=== PATIENT | male | born 1960 ===

== ENCOUNTER 2024-11-02 12:00 | Inpatient (IN) | payer SELFPAY ==
[2024-11-02] VITALS (11 sets, daily range): BP systolic 122–146; BP diastolic 69–83; PULSE 60–75; RESP 16–23; TEMP 36.4–37.2; O2SAT 96–99; BMI 22.1
--- NOTE | 2024-11-02 12:01 | XRR_ITS ---
PROCEDURE INFORMATION: Exam: XR Chest Exam date and time: 11/02/2024 12:31 PM Age: 63 years old Clinical indication: Pain; Chest pressure; Additional info: Cp TECHNIQUE: Imaging protocol: Radiologic exam of the chest. Views: 1 view. COMPARISON: No relevant prior studies available. FINDINGS: Lungs: Calcified granuloma at each lung base. Pleural spaces: Unremarkable. No pleural effusion. No pneumothorax. Heart/Mediastinum: Unremarkable. No cardiomegaly. Bones/joints: Unremarkable. XR/XR chest 1V portable [id number] IMPRESSION: No acute findings.
--- NOTE | 2024-11-02 12:03 | ECG_ITS ---
[facility] Test Date: 2024-11-02 Pat Name: Tobias Stout Department: Room: Gender: Male Director Process: : 1960 Requested By: Natalya Cole Order Number: [id number] Chaim MD: Charly Russ M.D. Measurements Intervals [place] Rate: 72 P: 74 [place]: 164 QRS: 56 QRSD: 90 T: 66 QT: 341 QTc: 375 Interpretive Statements SINUS RHYTHM SEPTAL MYOCARDIAL INFARCTION , PROBABLY OLD [40+ ms Q WAVE IN V1/V2] Compared to ECG 01/15/2016 06:04:21 Sinus bradycardia no longer present First degree AV block no longer present Myocardial infarct finding still present Electronically Signed On 11-02-2024 21:38:53 EMPLOYEE RELATIONS ASSISTANT by Charly Russ M.D. [id number]
--- NOTE | 2024-11-02 12:09 | ED_ITS ---
HPI - Chest Pain 2 General: Chief Complaint: Chest Pain Stated Complaint: chest pain Time Seen by Provider: 11/02/24 12:09 History of Present Illness: 63-year-old male presents to the emergen cy room with complaint of chest pain. Patient had chest pain radiating down his right arm lasted for a few minutes associated with exertion relieved slightly by rest. He has not had any pain radiating to his back or neck. He has known history of coronary artery disease and previous stenting. He has not had any cardiac evaluation since his stenting several years ago. At the time he is evaluated emergency room chest pain had resolved. Associated symptoms: Deny abdominal pain, dyspnea or fever(s) Related Data Home Medications Medication Instructions Recorded Confirmed coenzyme Q10 100 mg capsule 100 mg PO DAILY 09/01/20 11/02/24 (CoQ-10) garlic 500 mg capsule 500 mg PO DAILY 09/01/20 11/02/24 cholecalciferol (vitamin D3) 25 25 mcg PO DAILY 08/31/21 11/02/24 mcg (1,000 unit) capsule cyanocobalamin (vitamin B-12) 2,500 mcg PO DAILY 08/31/21 11/02/24 2,500 mcg tablet ascorbic acid (vitamin C) 500 mg 500 mg PO DAILY 11/02/24 11/02/24 tablet (Vitamin C) omega 6-yie-guf-fish oil 1,000 mg 1 cap PO DAILY 11/02/24 11/02/24 (120 mg-180 mg) capsule (Fish Oil) Previous Rx's Medication Instructions Recorded aspirin 81 mg tablet,delayed 81 mg PO DAILY 30 days #30 tabs 11/04/24 release (Adult Aspirin Regimen) metoprolol tartrate 25 mg tablet 12.5 mg (1/2 x 25 mg) PO BID 30 11/04/24 days #30 tabs nitroglycerin 0.4 mg sublingual 0.4 mg sublingual Q5M PRN chest 11/04/24 tablet pain 30 days #30 tabs simvastatin 20 mg tablet 20 mg PO BID 30 days #60 tabs 11/04/24 Allergies Allergy/AdvReac Type Severity Reaction Status Date / Time No Known Allergies Allergy Verified 07/01/22 14:11 Review of Systems 2 Const: Denies: fever(s) or chills Card: Denies: chest pain Resp: Denies: dyspnea GI: Denies: abdominal pain : Denies: dysuria, urinary frequency or urinary urgency Musc: Denies: neck pain or back pain Skin/Breast: Denies: rash PFSH ED 2 PFSH: Medical History Tobacco abuse Dyslipidemia Hypertension Coronary artery disease Surgical History History of coronary artery stent placement Family History Brother CAD (coronary artery disease) Cancer Diabetes Mother Cancer Sister Cancer Diabetes Family/Other Chronic kidney disease (CKD) Denies family history of Clotting disorder Dementia Suicide Anesthesia complication Bleeding disorder Lung disease Stroke Social History Smoking and tobacco/nicotine status: current every day tobacco/nicotine user Quit status (tobacco/nicotine): has tried quititng Second hand smoke exposure: Yes Alcohol intake: current Alcohol intake frequency: holidays/special occasions only Alcohol type: beer Substance/Drug Use: never Physical Exam 2 Const: COMMON NORMALS: no acute distress GENERAL APPEARANCE: cooperative and comfortable ORIENTATION/CONSCIOUSNESS: Yes awake, Yes oriented to person, Yes oriented to place and Yes oriented to time HENMT: COMMON NORMALS: normocephalic, atraumatic and hearing grossly normal bilaterally HEAD & SCALP: normocephalic and atraumatic Resp: COMMON NORMALS: normal respiratory effort, No retractions, No use of accessory muscles and clear to auscultation bilaterally AUSCULTATION: clear to auscultation bilaterally Cardio: COMMON NORMALS: regular rate, regular rhythm and No murmurs present (Cardio) RATE: regular rate RHYTHM: regular rhythm GI: COMMON NORMALS: Soft to palpation and No hepatosplenomegaly present A USCULTATION: Yes normoactive bowel sounds PALPATION: Yes Soft to palpation, No Tenderness to palpation present (GI), No Guarding due to palpation present (GI) and Yes No hepatosplenomegaly present Extremity: COMMON NORMALS: normal to inspection, capillary refill normal, no clubbing, cyanosis or edema, no calf tenderness and no pedal edema Neuro: SENSORIUM/ORIENTATION: Yes oriented to person, Yes oriented to place and Yes oriented to time Skin: COMMON NORMALS: no rashes or lesions noted GENERAL SKIN EXAM: no rashes or lesions noted Course 2 Vital Signs: Vital signs: Vital Signs Temperature 97.9 F 11/04/24 16:00 Pulse Rate 67 11/04/24 19:28 Respiratory Rate 16 11/04/24 19:28 Blood Pressure 115/68 11/04/24 19:28 Pulse Oximetry 97 11/04/24 19:28 Oxygen Delivery Me thod Room Air 11/04/24 16:00 MDM - Chest Pain Medical Decision Making NSTEMI. Initial troponin 64 with a positive delta of 93.8. Patient started on heparin topical nitro. Will admit to consult cardiology. Medical Records I reviewed the patient's medical records. Lab Data I reviewed the patient's lab results. 11/04/24 04:28 11/04/24 04:28 Radiology Impressions Chest X-Ray 11/02/24 12:01 IMPRESSION: No acute findings. Laboratory Results WBC 8.90 10^3/uL (3.29-11.43) 11/02/24 12:24 RBC 5.47 10^6/uL (3.85-5.65) 11/02/24 12:24 Hgb 16.00 g/dL (11.27-16.99) 11/02/24 12:24 Hct 49.3 % (37-53) 11/02/24 12:24 MCV 90.1 fl (82-101) 11/02/24 12:24 MCH 29.3 pg (27-33) 11/02/24 12:24 MCHC 32.5 g/dL (30-55) 11/02/24 12:24 RDW 12.9 % (12.1-15.1) 11/02/24 12:24 Plt Count 167 10^3/cmm (157-399) 11/02/24 12:24 MPV 9.6 fL (7.4-10.4) 11/02/24 12:24 Neut % (Auto) 73.6 % 11/02/24 12:24 Lymph % (Auto) 18.0 % 11/02/24 12:24 [place] % (Auto) 7.0 % 11/02/24 12:24 Eos % (Auto) 0.6 % 12/24/24 12:24 Baso % (Auto) 0.6 % 11/02/24 12:24 Neut # (Auto) 6.56 10^3/uL (1.8-7.7) 11/02/24 12:24 Lymph # (Auto) 1.6 10^3/uL (0.8-4.8) 11/02/24 12:24 [place] # (Auto) 0.6 10^3/uL (0.2-0.9) 11/02/24 12:24 Eos # (Auto) 0.1 10^3/uL (0.0-0.8) 11/02/24 12:24 Baso # (Auto) 0.1 10^3/uL (0.0-0.1) 11/02/24 12:24 Nucleated RBC % (auto) 0 % 11/02/24 12:24 Nucleated RBCs # 0.0 /100WBC 11/02/24 12:24 Sodium 135 mmol/L (136-145) L 11/02/24 12:24 Potassium 4.5 mmol/L (3.5-5.1) 11/02/24 12:24 Chloride 100 mmol/L (98-107) 11/02/24 12:24 Carbon Dioxide 26 mmol/L (22-29) 11/02/24 12:24 Anion Gap 13.5 (5-19) 11/02/24 12:24 BUN 11 mg/dL (8-23) 11/02/24 12:24 Creatinine 0.9 mg/dL (0.7-1.2) 11/02/24 12:24 GFR Calculation 85.8 mL/min (90-130) L 11/02/24 12:24 Glucose 86 mg/dL (65-115) 11/02/24 12:24 Estimat Average Glucose 114 11/02/24 12:24 Hemoglobin A1c 5.6 % (4.0-6.0) 11/02/24 12:24 Calculated Osmolality 279 mOsm/kg (285-295) L 11/02/24 12:24 Calcium 9.5 mg/dL (8.5-10.5) 11/02/24 12:24 Total Bilirubin 0.4 mg/dL (0.15-1.2) 11/02/24 12:24 AST 13 U/L (0-40) 11/02/24 12:24 ALT 10 U/L (0-41) 11/02/24 12:24 Alkaline Phosphatase 67 U/L (40-130) 11/02/24 12:24 Troponin T Baseline 64 ng/L (0-15) H 11/02/24 12:24 Troponin T 120 Minute 93.80 ng/L (0-15) H 11/02/24 15:00 Delta Troponin T 29.80 ABS# (0-10) H* 11/02/24 15:00 Total Protein 7.7 g/dL (6.6-8.7) 11/02/24 12:24 Albumin 4.6 g/dL (3.5-5.2) 11/02/24 12:24 Globulin 3.1 g/dL (1.3-4.6) 11/02/24 12:24 Triglycerides 144 mg/dL (0-150) 11/02/24 12:24 Cholesterol 204 mg/dL (0-200) H 11/02/24 12:24 LDL Cholesterol, Calc 143 mg/dL (50-129) H 11/02/24 12:24 HDL Cholesterol 32 mg/dL (60-100) L 11/02/24 12:24 LDL/HDL Ratio 4.47 RATIO (0.00-3.22) H 11/02/24 12:24 Cholesterol/HDL Ratio 6.38 mg/dL (1.0-5.00) H 11/02/24 12:24 Lipase 36 U/L (13-60) 11/02/24 12:24 TSH 0.97 uIU/mL (0.27-4.20) 11/02/24 12:24 All radiology interpretation(s) finalized by discharge Discharge Plan Discharge Patient Disposition: Admitted As Inpatient Admit Provider: Alexandre Curtis Clinical Impression: NSTEMI (non-ST elevated myocardial infarction), Hypertension, Coronary artery disease Condition: Stable Discharge Diet: Cardiac Discharge Activity: Resume usual activity Coding Level of Care Code ED Database Marketing Specialist for Robert Pedroza
[2024-11-02 12:30] LABS: Basophils # 0.1 10^3/uL (0.0-0.1); Basophils % 0.6 %; Eosinophils # 0.1 10^3/uL (0.0-0.8); Eosinophils % 0.6 %; Hematocrit 49.3 % (37-53); Lymphocytes # 1.6 10^3/uL (0.8-4.8); Mean Corpuscular HGB Conc 32.5 g/dL (30-55); Mean Corpuscular Hemoglobin 29.3 pg (27-33); Mean Corpuscular Volume 90.1 fl (82-101); Mean Platelet Volume 9.6 fL (7.4-10.4); Monocytes # 0.6 10^3/uL (0.2-0.9); Neutrophils # 6.56 10^3/uL (1.8-7.7); Neutrophils % 73.6 %; Nucleated Red Blood Cells % 0 %; Platelet Count 167 10^3/cmm (157-399); Red Blood Count 5.47 10^6/uL (3.85-5.65); Red Cell Distribution Width 12.9 % (12.1-15.1)
--- NOTE | 2024-11-02 12:51 | PC.PHAR ---
Spouse states pt has not taken his medications in a week. Pt has only taken 2 x 81mg asa today.
[2024-11-02 12:53] LABS: Alanine Aminotransferase 10 U/L (0-41); Albumin Level 4.6 g/dL (3.5-5.2); Alkaline Phosphatase 67 U/L (40-130); Anion Gap 13.5 (5-19); Aspartate Amino Transferase 13 U/L (0-40); Blood Urea Nitrogen 11 mg/dL (8-23); Calcium 9.5 mg/dL (8.5-10.5); Carbon Dioxide 26 mmol/L (22-29); Chloride 100 mmol/L (98-107); Globulin 3.1 g/dL (1.3-4.6); Glomerular Filtration Rate 85.8 mL/min (90-130); Glucose 86 mg/dL (65-115); Lipase 36 U/L (13-60); Osmolality Calculated 279 mOsm/kg (285-295); Potassium 4.5 mmol/L (3.5-5.1); Sodium 135 mmol/L (136-145); Total Bilirubin 0.4 mg/dL (0.15-1.2); Total Protein 7.7 g/dL (6.6-8.7)
[2024-11-02 12:55] LABS: Troponin(5th) Baseline 64 ng/L (0-15)
--- NOTE | 2024-11-02 14:01 | ECG_ITS ---
[facility] Date: 2024-11-02 Pat Name: Tobias Stout Department: Room: Gender: Male Nurse Practitioner Manager: : 1960 Requested By: Natalya Cole Order Number: [id number] Chaim MD: Charly Russ M.D. Measurements Intervals [place] Rate: 59 P: 75 DE: 177 QRS: 64 QRSD: 83 T: 68 QT: 375 QTc: 373 Interpretive Statements SINUS BRADYCARDIA SEPTAL MYOCARDIAL INFARCTION , PROBABLY OLD [40+ ms Q WAVE IN V1/V2] Compared to ECG 11/02/2024 12:14:09 Sinus rhythm no longer present Myocardial infarct finding still present Electronically Signed On 11-02-2024 22:07:02 TENTERING MACHINE OFF BEARER by Charly Russ M.D. [id number]
[2024-11-02] MEDS: aspirin 81 mg Chew Tablet 162 MG PO (16:00)
[2024-11-02] MEDS: clopidogrel 300 mg Tablet PO (16:00)
[2024-11-02] MEDS: heparin 5,000 unit/mL INJ 1 mL IVP (16:03)
[2024-11-02] MEDS: heparin drip 25,000 UNIT/500 ML PREMIX 20 UNIT IV (16:08)
[2024-11-02] MEDS: nitroglycerin 1 gm/inch oint Pkt 0.5 INCH TOPICAL (16:09)
--- NOTE | 2024-11-02 16:23 | USCV_ITS ---
Tobias Stout Age: 63 Gender: M : 1960 Exam Date: 11/02/2024 16:44 Ordering Phys: Alexandre Curtis MD Technologist: CT [place] [facility] [place] Indication: cp BP: 122 / 78 HR: 63 Rhythm: Sinus Technical Quality: Adequate MEASUREMENTS (Male / Female) Normal Values 2D ECHO LVOT Diameter 2.1 cm LV Ejection Fraction MOD 4C 67.0 % LV Ejection Fraction MOD 2C 55.2 % LV Ejection Fraction 2C AL 54.1 % LA Diameter 2.9 cm RA Systolic Volume 4C AL 48.1 ml RA Systolic Volume 4C MOD 46.6 ml LA Sys Volume AL 29.3 cm cubed LA Sys Volume Index AL 15.3 cm cubed/m squared Aorta at Sinotubular Diameter 2.4 cm IVC Diameter 1.7 cm M-MODE LA Ao Ratio MM 1.3 AV Cusp Separation MM 1.7 cm DOPPLER AV Peak Velocity 111.0 cm/s LVOT Peak Velocity 89.0 cm/s AV Area Cont Eq vti 2.9 cm squared AV Area Cont Eq pk 2.7 cm squared MV Peak Velocity 66.0 cm/s MV Area PHT 3.5 cm squared Mitral E to A Ratio 1.2 TR Peak Velocity 180.0 cm/s TR Peak Gradient 13.0 mmHg PV Peak Velocity 86.5 cm/s FINDINGS Left Ventricle Normal left ventricular size and systolic function, EF 60%. No regional wall motion abnormalities. Right Ventricle The right ventricle is normal in size and function. Right Atrium The right atrium is normal in size. Left Atrium The left atrium is normal in size. Mitral Valve No gross abnormalities noted Aortic Valve Thickened aortic valve. Tricuspid Valve No gross abnormalities noted Pulmonic Valve No gross abnormalities noted Pericardium Normal pericardium without effusion. Aorta Normal ascending aorta dimension. IVC The inferior vena cava appears normal. CONCLUSIONS Normal left ventricular size and systolic function, EF 60%. No regional wall motion abnormalities. No gross valvular abnormalities noted There is no pericardial effusion. There are no intracardiac masses. Compared to the previous study from 01/15/2016, there may not be a significant change Dr Charly Russ MD [facility] (Electronically Signed) Final Date: 02 November 2024 18:09 S
--- NOTE | 2024-11-02 16:25 | P.HP_ITS ---
Providers/Chief Complaint 2 Primary Care Provider: NICOLE Schroeder Chief Complaint: chest pain History of Present Illness Tobias Stout is a 63 year old male with a past medical history of smoking, history of CAD, history of cardiac stenting, hypertension, who presents [facility] for chest pain. Patient reports that today he started experiencing severe substernal chest pain, radiating down the right arm, lasting a few minutes, symptoms associate with exertion, does report shortness of breath, no lower extremity edema, no cough, Medications/Allergies Home Medications Medication Instructions Recorded Confirmed Last Taken Type aspirin 81 mg tablet,delayed 162 mg PO DAILY 09/01/20 11/02/24 11/02/24 History release (Adult Aspirin Regimen) coenzyme Q10 100 mg capsule 100 mg PO DAILY 09/01/20 11/02/24 1 Week Ago History (CoQ-10) ~10/26/24 garlic 500 mg capsule 500 mg PO DAILY 09/01/20 11/02/24 1 Week Ago History ~10/26/24 cholecalciferol (vitamin D3) 25 25 mcg PO DAILY 08/31/21 11/02/24 1 Week Ago History mcg (1,000 unit) capsule ~10/26/24 cyanocobalamin (vitamin B-12) 2,500 mcg PO DAILY 08/31/21 11/02/24 1 Week Ago History 2,500 mcg tablet ~10/26/24 metoprolol tartrate 25 mg tablet 12.5 mg PO BID 08/31/21 11/02/24 1 Week Ago History ~10/26/24 ascorbic acid (vitamin C) 500 mg 500 mg PO DAILY 11/02/24 11/02/24 1 Week Ago History tablet (Vitamin C) ~10/26/24 omega 4-roa-xbs-fish oil 1,000 mg 1 cap PO DAILY 11/02/24 11/02/24 1 Week Ago History (120 mg-180 mg) capsule (Fish Oil) ~10/26/24 simvastatin 20 mg tablet 10 mg PO BID 11/02/24 11/02/24 1 Week Ago History ~10/26/24 Allergies Allergy/AdvReac Type Severity Reaction Status Date / Time No Known Allergies Allergy Verified 07/01/22 14:11 PFSH Acute 2 PFSH: Medical History Tobacco abuse Dyslipidemia Hypertension Coronary artery disease Surgical History History of coronary artery stent placement Family History Brother CAD (coronary artery disease) Cancer Diabetes Mother Cancer Sister Cancer Diabetes Family/Other Chronic kidney disease (CKD) Denies family history of Clotting disorder Dementia Suicide Anesthesia complication Bleeding disorder Lung disease Stroke Social History Smoking and tobacco/nicotine status: current every day tobacco/nicotine user Quit status (tobacco/nicotine): has tried quititng Second hand smoke exposure: Yes Alcohol intake: current Alcohol intake frequency: holidays/special occasions only Alcohol type: beer Substance/Drug Use: never Vitals/I&O/Wt Last Vital Signs Temp 97.5 F L 11/02/24 12:02 Pulse 66 11/02/24 16:09 Resp 16 11/02/24 12:02 BP 146/83 11/02/24 16:09 Pulse Ox 98 11/02/24 13:59 O2 Del Method Room Air 11/02/24 12:02 11/02/24 11/02/24 11/02/24 06:59 14:59 22:59 Intake Total 0 / 0 Balance 0 / 0 Weight last 48 hrs Weight 72.212 kg Physical Exam 2 Const: COMMON NORMALS: no acute distress and patient oriented x3 HENMT: COMMON NORMALS: normocephalic HEAD & SCALP: normocephalic Neck/C-Spine: COMMON NORMALS: no JVD Resp: COMMON NORMALS: normal respiratory effort, No retractions, No use of accessory muscles and clear to auscultation bilaterally AUSCULTATION: clear to auscultation bilaterally Cardio: COMMON NORMALS: regular rate, regular rhythm, S1 normal heart sound present and S2 normal heart sound present RATE: regular rate RHYTHM: r egular rhythm HEART SOUNDS: S1 normal heart sound present and S2 normal heart sound present GI: COMMON NORMALS: Normal to inspection, nondistended, normoactive bowel sounds present, Soft to palpation and non-tender Extremity: COMMON NORMALS: no calf tenderness and no pedal edema Neuro: COMMON NORMALS: patient oriented x3, CN's II-XII intact bilaterally and moves all extremities Psych: COMMON NORMALS: mental status grossly normal Data 11/02/24 12:24 11/02/24 12:24 A&P Assessment and plan (1) Chest pain: (2) NSTEMI (non-ST elevated myocardial infarction): Plan NSTEMI, chest pain ? Plan ? Serial EKGs, start troponins, telemetry monitoring - Has been loaded with Plavix in the emergency room, continue Plavix 75 mg daily ? Continue aspirin ? Atorvastatin # Beta-ivet # Cardiac echo # Continue heparin drip ? Will consider nitro drip based on clinical progress # Cardiology has been consulted ? Full code # Heparin drip for DVT prophylaxis Attestations 2 Medical Necessity Statement*: Patient requires hospitalization, inpatient, greater than 2 midnights, for NSTEMI, chest pain Diagnoses Chest pain R07.9 NSTEMI (non-ST elevated myocardial infarction) I21.4
--- NOTE | 2024-11-02 18:01 | ECG_ITS ---
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 Measurements Intervals [place] Rate: 71 P: 72 OR: 175 QRS: 72 QRSD: 87 T: 59 QT: 352 QTc: 384 Interpretive Statements SINUS RHYTHM SEPTAL MYOCARDIAL INFARCTION , PROBABLY OLD [40+ ms Q WAVE IN V1/V2] Compared to ECG 11/02/2024 12:03:41 No significant changes Electronically Signed On 11-02-2024 22:06:56 CULTURAL HISTORIAN by Charly Russ M.D. [email or web address]
[2024-11-02 18:02] LABS: Chol HDL Ratio 6.38 mg/dL (1.0-5.00); Cholesterol 204 mg/dL (0-200); HDL Cholesterol 32 mg/dL (60-100); LDL Cholesterol Calculated 143 mg/dL (50-129); LDL HDL Ratio 4.47 RATIO (0.00-3.22); Thyroid Stimulating Hormone 0.97 uIU/mL (0.27-4.20); Triglycerides 144 mg/dL (0-150)
[2024-11-02 18:45] LABS: Estmated Average Glucose 114; Hemoglobin A1C 5.6 % (4.0-6.0)
[2024-11-02 19:01] LABS: Troponin 5 6HR 115.6 ng/L (0-15); Troponin 5 6HR Delta 51.6 ng/L (0-12)
[2024-11-02] MEDS: metoprolol tartrate 25 mg Tablet 12.5 MG PO (22:00)
[2024-11-02] MEDS: atorvastatin 40 mg Tablet PO (22:00)
[2024-11-02] MEDS: pantoprazole 40 mg SDV IVP (22:01)
[2024-11-03] VITALS (9 sets, daily range): BP systolic 113–129; BP diastolic 68–79; PULSE 62–85; RESP 14–24; TEMP 36.5–37.2; O2SAT 96–97
[2024-11-03 06:11] LABS: Basophils # 0.1 10^3/uL (0.0-0.1); Basophils % 0.6 %; Eosinophils # 0.3 10^3/uL (0.0-0.8); Eosinophils % 2.6 %; Hematocrit 49.1 % (37-53); Lymphocytes # 2.7 10^3/uL (0.8-4.8); Mean Corpuscular HGB Conc 32.6 g/dL (30-55); Mean Corpuscular Hemoglobin 29.1 pg (27-33); Mean Corpuscular Volume 89.4 fl (82-101); Mean Platelet Volume 10.2 fL (7.4-10.4); Monocytes # 0.8 10^3/uL (0.2-0.9); Neutrophils # 6.58 10^3/uL (1.8-7.7); Neutrophils % 62.5 %; Nucleated Red Blood Cells % 0 %; Platelet Count 186 10^3/cmm (157-399); Red Blood Count 5.49 10^6/uL (3.85-5.65); Red Cell Distribution Width 12.9 % (12.1-15.1); White Blood Count 10.51 10^3/uL (3.29-11.43)
[2024-11-03 06:23] LABS: Partial Thromboplastin Time 66.4 SECONDS (23.9-36.7)
[2024-11-03 06:32] LABS: Anion Gap 16.2 (5-19); Blood Urea Nitrogen 10 mg/dL (8-23); Calcium 9.2 mg/dL (8.5-10.5); Carbon Dioxide 23 mmol/L (22-29); Chloride 104 mmol/L (98-107); Creatinine Clr Calc Pharmacy 89.0564; Glomerular Filtration Rate 85.8 mL/min (90-130); Glucose 93 mg/dL (65-115); Osmolality Calculated 287 mOsm/kg (285-295); Potassium 4.2 mmol/L (3.5-5.1); Sodium 139 mmol/L (136-145)
[2024-11-03] MEDS: metoprolol tartrate 25 mg Tablet 12.5 MG PO ×2 (09:23→17:29)
[2024-11-03] MEDS: clopidogrel 75 mg Tablet PO (09:23)
[2024-11-03] MEDS: aspirin 81 mg EC Tablet PO (09:26)
--- NOTE | 2024-11-03 09:28 | PC.CHAP ---
Pastoral Care Encounter/Spiritual Assessment Type of Contact [] Declined ultimate hoops scoreboard operator visit [] Patient/Family/Request visit [] Outpatient visit [] Follow-up visit [] Physician referral [] Code/Alert [x] Routine visit [] Staff referral [] Actively dying [] Patient sleeping [x] Family support [] [] Out of room [] Palliative care [] [] Receiving care in room [] Pre-surgical visit [] Trauma [] Long length of stay [] ICU visit [] Other: Relational/Emotional Strength [x] Patient feels connected with others/family/visitors/staff [] Distress [] Loneliness/isolation [] Abandonment Spirituality of Patient [x] Person of Jhoana [] Attends Buddhist of their Jhoana [x] Believes in Prayer [] Reads Bible or Worship materials [] There are Spiritual issues to be addressed Pallet Stone Inserter Interventions [x] Prayer [x] Active listening [] Non-anxious presence [x] Spiritual/emotional support [] Crisis/trauma care [] Spiritual counseling [] Bereavement support [] Provided bereavement packet [] Provided Bible/devotional materials [] Provided toy/stuffed animal, coloring book to patient or family member [] Provided Communion [] Anointing/[place] [] Salvation [x] Completed spiritual assessment [] Other: Impact on Illness or Injury [] Angry [] Fearful [] Anxious [] Often cries [] Exhaustion [] Unable to work [] Unable to attend protestant [] Unable to walk/stand [] Unable to read [] Unable to drive [] Unable to eat/drink [] Unable to sleep [] Unable to be with family [] Patient intubated [] Other: Summary Time spent with patient 10 min
--- NOTE | 2024-11-03 10:34 | P.CONIM_ITS ---
Providers/Reason For Consult 2 Consulting Physician/Specialty*: Xavier Prado MD/Cardiology Reason for Consult*: NSTEMI Requesting Physician: Dr Curtis Attending Physician: Alexandre Curtis MD Primary Care Provider: NICOLE Schroeder History of Present Illness History of Present Illness Tobias Stout is a 63 year old male with past medical history of hypertension, coronary artery disease with multiple prior stents who presented to hospital with on and off severe substernal chest pain radiating to the right arm. This started yesterday in the morning at 630 and keep coming back till noon. Baseline troponin was 64 that trended up to 115 at 6 hours. EKG not showing significant ST-T wave changes. Since coming to the hospital no more chest pain. Review of Systems 2 Const: Denies: fever(s) or chills Card: Reports: chest pain Resp: Denies: dyspnea GI: Denies: abdominal pain : Denies: dysuria, urinary frequency or urinary urgency Musc: Denies: neck pain or back pain Skin/Breast: Denies: rash Medications/Allergies Home Medications Medication Instructions Recorded Confirmed Last Taken Type aspirin 81 mg tablet,delayed 162 mg PO DAILY 09/01/20 11/02/24 11/02/24 History release (Adult Aspirin Regimen) coenzyme Q10 100 mg capsule 100 mg PO DAILY 09/01/20 11/02/24 1 Week Ago History (CoQ-10) ~10/26/24 garlic 500 mg capsule 500 mg PO DAILY 09/01/20 11/02/24 1 Week Ago History ~10/26/24 cholecalciferol (vitamin D3) 25 25 mcg PO DAILY 08/31/21 11/02/24 1 Week Ago History mcg (1,000 unit) capsule ~10/26/24 cyanocobalamin (vitamin B-12) 2,500 mcg PO DAILY 08/31/21 11/02/24 1 Week Ago History 2,500 mcg tablet ~10/26/24 metoprolol tartrate 25 mg tablet 12.5 mg PO BID 08/31/21 11/02/24 1 Week Ago History ~10/26/24 ascorbic acid (vitamin C) 500 mg 500 mg PO DAILY 11/02/24 11/02/24 1 Week Ago History tablet (Vitamin C) ~10/26/24 omega 2-uxq-beg-fish oil 1,000 mg 1 cap PO DAILY 11/02/24 11/02/24 1 Week Ago History (120 mg-180 mg) capsule (Fish Oil) ~10/26/24 simvastatin 20 mg tablet 10 mg PO BID 11/02/24 11/02/24 1 Week Ago History ~10/26/24 Allergies Allergy/AdvReac Type Severity Reaction Status Date / Time No Known Allergies Allergy Verified 07/01/22 14:11 Current Medications Generic Name Dose Route Start Last Admin Trade Name Ross PRN Reason Stop Dose Admin Aspirin 81 mg 11/03/24 09:00 11/03/24 09:26 Aspirin 81 Mg Ec Tablet PO 81 mg DAILY EVANGELINA Administration Atorvastatin Calcium 40 mg 11/02/24 21:00 11/02/24 22:00 Atorvastatin 40 Mg Tablet PO 40 mg BEDTIME EVANGELINA Administration Clopidogrel Bisulfate 75 mg 11/03/24 09:00 11/03/24 09:23 Clopidogrel 75 Mg Tablet PO 75 mg DAILY EVANGELINA Administration Heparin Sodium/Sodium Chloride 25,000 unit in 500 mls @ 0 mls/hr 11/02/24 16:00 11/02/24 22:46 Heparin Drip IV 11.08 unit/kg/hr CONT EVANGELINA 16 mls/hr Titration Protocol Per Protocol Metoprolol Tartrate 12.5 mg 11/02/24 18:00 11/03/24 09:23 Metoprolol Tartrate 25 Mg Tablet PO 12.5 mg BID EVANGELINA Administration Pantoprazole Sodium 40 mg 11/02/24 17:28 11/02/24 22:01 Pantoprazole 40 Mg Sdv IVP 40 mg Q24H EVANGELINA Administration PFSH Acute 2 PFSH: Medical History Tobacco abuse Dyslipidemia Hypertension Coronary artery disease Surgical History History of coronary artery stent placement Family History Brother CAD (coronary artery disease) Cancer Diabetes Mother Cancer Sister Cancer Diabetes Family/Other Chronic kidney disease (CKD) Denies family history of Clotting disorder Dementia Suicide Anesthesia complication Bleeding disorder Lung disease Stroke Social History Smoking and tobacco/nicotine status: current every day tobacco/nicotine user Quit status (tobacco/nicotine): has tried quititng Second hand smoke exposure: Yes Alcohol intake: current Alcohol intake frequency: holidays/special occasions only Alcohol type: beer Substance/Drug Use: never Vitals/I&O/Wt Last Vital Signs Temp 97.7 F 11/03/24 08:00 Pulse 66 11/03/24 08:00 Resp 20 H 11/03/24 08:00 BP 125/79 11/03/24 08:00 Pulse Ox 96 11/03/24 08:00 O2 Del Method Room Air 11/03/24 08:00 11/02/24 11/03/24 11/03/24 22:59 06:59 14:59 Intake Total 918.667 / 918.667 300 / 1218.667 236 / 236 Balance 918.667 / 918.667 300 / 1218.667 236 / 236 Weight last 48 hrs Weight 153 lb 9.6 oz Weight 159 lb 3.2 oz Physical Exam 2 Narrative: GENERAL: Patient is alert, awake and oriented x3. [] NECK: No jugular vein distension. [] HEENT: No cyanosis. No icterus. No pallor. [] HEART: Regular S1 and S2. No murmur, rub or gallop. [] LUNGS: Clear to auscultate bilaterally. [] CENTRAL NERVOUS SYSTEM: Grossly nonfocal. [] EXTREMITIES: Lower extremities with no edema bilaterally. Data 11/04/24 04:28 11/04/24 04:28 A&P Assessment and plan (1) NSTEMI (non-ST elevated myocardial infarction): (2) Tobacco abuse: (3) Coronary artery disease: (4) Hypertension: Plan Patient has presented with typical chest pain symptoms and has troponin elevation consistent with non-ST elevation [place]. Will proceed with coronary angiogram with possible PCI tomorrow. Risk and benefits of the procedure been discussed in detail. N.p.o. past midnight. Continue aspirin, Plavix and heparin. Echocardiogram ordered. Thank you for involving us with care of this patient. Will continue to follow. Please call with questions. Consult Attestations 2 Medical Necessity Statement: Care expected to cross 2 midnights. Coding Level of Care Code Acute Code for [facility] Diagnoses NSTEMI (non-ST elevated myocardial infarction) I21.4 Tobacco abuse Z72.0 Coronary artery disease I25.10 Hypertension I10
[2024-11-03 11:34] LABS: Partial Thromboplastin Time 61.3 SECONDS (23.9-36.7)
--- NOTE | 2024-11-03 15:26 | P.PN_ITS ---
Subjective 2 Subjective: Patient was seen this morning, no chest pain overnight, no significant shortness of breath Vitals/I&O/Wt Last Vital Signs Temp 98.4 F 11/03/24 12:00 Pulse 85 11/03/24 12:00 Resp 16 11/03/24 12:00 BP 121/71 11/03/24 12:00 Pulse Ox 97 11/03/24 12:00 O2 Del Method Room Air 11/03/24 12:00 11/03/24 11/03/24 11/03/24 06:59 14:59 22:59 Intake Total 300 / 1218.667 802.133 / 802.133 Balance 300 / 1218.667 802.133 / 802.133 Weight last 48 hrs Weight 69.672 kg Weight 72.212 kg Physical Exam 2 Const: COMMON NORMALS: no acute distress and patient oriented x3 Resp: COMMON NORMALS: normal respiratory effort, No retractions, No use of accessory muscles and clear to auscultation bilaterally AUSCULTATION: clear to auscultation bilaterally Cardio: COMMON NORMALS: regular rate, regular rhythm, S1 normal heart sound present and S2 normal heart sound present RATE: regular rate RHYTHM: r egular rhythm HEART SOUNDS: S1 normal heart sound present and S2 normal heart sound present GI: COMMON NORMALS: Normal to inspection, nondistended, normoactive bowel sounds present and non-tender Extremity: COMMON NORMALS: no pedal edema Neuro: COMMON NORMALS: patient oriented x3 Psych: COMMON NORMALS: mental status grossly normal Data 11/03/24 05:10 11/03/24 05:10 A&P Assessment and plan (1) Chest pain: (2) NSTEMI (non-ST elevated myocardial infarction): Plan NSTEMI, chest pain ? Plan ? Serial EKGs, start troponins, telemetry monitoring - Has been loaded with Plavix in the emergency room, continue Plavix 75 mg daily ? Continue aspirin ? Atorvastatin # Beta-ivet # Cardiac echo CONCLUSIONS Normal left ventricular size and systolic function, EF 60%. No regional wall motion abnormalities. No gross valvular abnormalities noted There is no pericardial effusion. There are no intracardiac masses. Compared to the previous study from 01/15/2016, there may not be a significant change # Continue heparin drip ? Will consider nitro drip based on clinical progress # Cardiology has been consulted ? Full code # Heparin drip for DVT prophylaxis N.p.o. midnight, plans on coronary angiography tomorrow, continue heparin drip, aspirin, statin, beta-ivet Attestations 2 Medical Necessity Statement*: Patient requires hospitalization for NSTEMI, chest pain Diagnoses Chest pain R07.9 NSTEMI (non-ST elevated myocardial infarction) I21.4
[2024-11-03 17:02] LABS: Partial Thromboplastin Time 54.5 SECONDS (23.9-36.7)
[2024-11-03] MEDS: heparin drip 25,000 UNIT/500 ML PREMIX 17 UNIT IV (17:30)
[2024-11-03] MEDS: heparin 5,000 unit/mL INJ 1 mL IVP (17:33)
[2024-11-03] MEDS: atorvastatin 40 mg Tablet PO (20:06)
[2024-11-03] MEDS: pantoprazole 40 mg SDV IVP (20:06)
[2024-11-04] VITALS (11 sets, daily range): BP systolic 114–137; BP diastolic 62–84; PULSE 56–67; RESP 14–21; TEMP 36.5–37.2; O2SAT 94–99
[2024-11-04 01:11] LABS: Partial Thromboplastin Time 71.2 SECONDS (23.9-36.7)
[2024-11-04 04:55] LABS: Basophils # 0.1 10^3/uL (0.0-0.1); Basophils % 0.8 %; Eosinophils # 0.3 10^3/uL (0.0-0.8); Eosinophils % 4.5 %; Lymphocytes # 2.8 10^3/uL (0.8-4.8); Lymphocytes % 38.5 %; Mean Corpuscular HGB Conc 32.4 g/dL (30-55); Mean Corpuscular Hemoglobin 29.6 pg (27-33); Mean Corpuscular Volume 91.1 fl (82-101); Mean Platelet Volume 10.2 fL (7.4-10.4); Monocytes # 0.8 10^3/uL (0.2-0.9); Monocytes % 10.5 %; Neutrophils # 3.28 10^3/uL (1.8-7.7); Neutrophils % 45.1 %; Nucleated Red Blood Cells % 0 %; Platelet Count 155 10^3/cmm (157-399); Red Blood Count 5.38 10^6/uL (3.85-5.65); Red Cell Distribution Width 13.1 % (12.1-15.1); White Blood Count 7.27 10^3/uL (3.29-11.43)
[2024-11-04 05:22] LABS: Anion Gap 14.2 (5-19); Blood Urea Nitrogen 12 mg/dL (8-23); Calcium 8.9 mg/dL (8.5-10.5); Carbon Dioxide 23 mmol/L (22-29); Chloride 104 mmol/L (98-107); Creatinine Clr Calc Pharmacy 80.5888; Glucose 116 mg/dL (65-115); Osmolality Calculated 285 mOsm/kg (285-295); Potassium 4.2 mmol/L (3.5-5.1); Sodium 137 mmol/L (136-145)
[2024-11-04] MEDS: diphenhydrAMINE 50 mg Capsule PO (06:08)
[2024-11-04] MEDS: sodium chloride 0.9% 1,000 ML 50 ML IV (06:10)
[2024-11-04] MEDS: clopidogrel 75 mg Tablet PO (06:22)
[2024-11-04] MEDS: metoprolol tartrate 25 mg Tablet 12.5 MG PO ×2 (06:22→17:02)
[2024-11-04] MEDS: aspirin 81 mg EC Tablet PO (06:22)
--- NOTE | 2024-11-04 06:59 | PC.NURSE ---
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
--- NOTE | 2024-11-04 07:00 | XACV_ITS ---
Exam Room: [facility] Ht: 188 cm Wt: 70 kg BSA: 1.90 m2 Gender: Male : 1960 Any Known Allergies: No known allergies Exam Priority: Routine Indication(s): - Non-ST elevation [place] Procedure(s): Procedure Description: Diagnostic procedure Procedure Description: Left Heart Catheterization Procedure Description: Left ventriculography Procedure Description: Coronary Angiography Diagnostic Cath Status: Urgent Diagnostic Findings * Left Main has no significant disease. * Circumflex has no significant disease. * Right Coronary Artery has overlapping stents from proximal to distal vessel. Proximal to mid stent has severe 80-90% instent restenosis. Mild to distal stent has 80% instent restenosis. Ostial PDA has a severe 70-80% stenosis. PLV has a 95-99% stenosis. * Mid Left Anterior Descending: significant 80% instent restenosis, CYNTHIA: 3 flow. * 2nd Diagonal: obstructive 70% stenosis, CYNTHIA: 3 flow. * Distal Left Anterior Descending: severe 90% stenosis, CYNTHIA: 3 flow. * Coronary angiography shows right dominance. Conclusions 1. Severe multivessel, multilevel coronary artery disease. Will refer to CT surgery for CABG evaluation. 2. Normal left ventricular systolic function. Ejection fraction of 65%. Recommendations * CT surgery referral and CABG evaluation. Interventional RX Recommendation: CABG Diagnostic RX Recommendation: CABG Anticoagulation: Heparin Ventriculography Ejection Fraction: 65.0 % Pressures Phase:Rest AO : 98 / 55 ( 74 ) @ 7:24:00 AM 101 / 56 ( 76 ) @ 7:24:00 AM LV : 101 / -5 / 17 @ 7:22:00 AM 92 / -4 / 14 @ 7:24:00 AM 95 / -6 / 13 @ 7:24:00 AM Valves Phase:DefaultPhase AV : 0.0 @ 7:35:13 AM AV Mean Gradient: 0.0 @ 7:35:13 AM Clinical Evaluation EBL: 5mL-10mL Procedural Details Procedure Consent Obtained. Pre-Procedure Time Out. Identified patient by full name and date of as verbalized by the patient/guarantor. Does the consent match the physician's order: Yes. Accurate & Complete Informed Consent: Yes. Inpatient/Outpatient History & Physical on Chart: Yes. If H&P is completed, is and addenduem needed: No; If yes, is the addendum complete: N/A. Visualize and Verify Site with Patient/Guarantor: N/A. Relevant Radiology Images available: N/A. The risks, benefits, and alternatives of sedation and/or procedure were discussed by physician. The patient agrees to continue. Procedure started. [facility] Clinical Fraility Score: 3: Managing Well. 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 Chest Pain Symptom Assessment: Typical Angina Symptoms. Cardiovascular Instability: No. Correct patient, site and procedure confirmed by cath team. Current diagnosis: NSTEMI. PERRLA. Strong, equal hand proof passer bilaterally. Lungs clear x 5 lobes. IV Site on Arrival: 20 gauge in the left anticubital. IV Fluids: 0.9% NaCl at KVO. 0 mL infused prior to manager labor delivery. Pre Procedural Pulses: bilateral posterior tibial was Doppled. Pre Procedural Pulses: bilateral dorsalis pedis was Doppled. Pre Procedural Pulses: bilateral radial was 3+. Oxygen started at 3liters/min via nasal canula. right groin was prepped with chloroprep then draped in the usual sterile fashion. right radial was prepped with chloroprep then draped in the usual sterile fashion. Baseline sample Acquired. HR: 52 BPM. Physician notified. Baseline sample Acquired. HR: 54 BPM. Physician arrived. Family updated by MD prior to the start of the procedure. Physician scrubbed in. Immediate Pre-Procedure Time Out. Correct Patient: Yes; Correct Procedure: Yes; Correct Site: Yes; Correct Patient Position: Yes; Correct Supplies: Yes; Dried Flammable Prep: Yes; Blood Products Available: N/A;. Lidocaine 1% infiltrated to the right radial. Arterial access obtained. A 5 beninese TIG catheter in over wire. Heparin gtt off at 0650 on the floor. Multiple views taken of left coronary artery. Catheter redirected to the RCA. Multiple views taken of right coronary artery. Catheter removed over the exchange wire. A 5 beninese Angled Pig catheter in over wire. EDP Sample taken: LV 101/-6,17; HR: 58 BPM; SpO2: 97%. LV gram performed in [place] @ 10 mL/second for a total of 30 mL. Patient EF: Normal. EDP Sample taken: LV 92/-5,14; HR: 59 BPM; SpO2: 98%. Pullback taken: LV 95/-6,13; AO 98/55(74); Mean: 0mmHg, Peak to Peak: 0mmHg, SEP: 5sec/min; HR: 61 BPM; SpO2: 97%. Catheter removed over the exchange wire. Physician review of films. Physician scrubbed out. A TR Band was successful obtaining hemostatsis at the Right Radial artery insertion site. TR band placed. Hemostasis obtained. Post Procedure: Pulses reassessed and unchanged. PERRLA. Strong, equal hand proof passer bilaterally. No VTE prophylaxis required. Medication waste: Lidocaine- 18 ml Nitro- 49.8 mg Heparin- 3000 units Fentanyl- 50 mcg. Total IV fluids: 250 mL. Fluoro: 2:09. Contrast type used: Omnipaque 300 mg/mL, 150 mL bottle. [id number]. Post-op diagnosis: Severe Multivessel CAD. Complications: None. Estimated blood loss: 5mL-10mL. Responsiveness - Normal response to verbal stimuli; alert and oriented, PERRLA. Airway - Unaffected, no intervention required; spontaneous ventilation. Circulation: W/N/L, pulses unchanged. Nausea/Vomiting: No. Procedure completed. Patient transferred by bed to CPRU. Vital chart was stopped. Current Diagnosis : NSTEMI. Access Site Site: Right Radial artery Sheath Size: 6 Fr Hemostasis Method: TR Band Hemostasis Success: Successful Procedure Medications Start: 7:08 AM Stop: 7:08 AM Medication: Versed Amount: 1 mg Route: I.V. Start: 7:08 AM Stop: 7:08 AM Medication: Fentanyl Amount: 50 mcg Route: I.V. Start: 7:10 AM Stop: 7:10 AM Medication: Versed Amount: 1 mg Route: I.V. Start: 7:13 AM Stop: 7:13 AM Medication: Nitrogylcerin Amount: 200 mcg Route: I.A. Start: 7:14 AM Stop: 7:14 AM Medication: Heparin Amount: 3000 units Route: I.V. Start: 7:15 AM Stop: 7:15 AM Medication: 0.9% Saline Amount: 250 ml Route: I.V. bolus I, the attending physician, have reviewed and verified all procedure medications. Yes, all medications given per verbal order History/Risk Factors Hypertension: Yes Dyslipidemia: Yes Peripheral Arterial Disease (PAD): No Myocardial Infarction (AK): Yes Obesity: No Renal Disease: No Tobacco Use: Current/Recent(w/in 1 year) Prior Interventions PCI: Yes CABG: No Valve Surgery: No Date of PCI: 01/15/2016 Report Signatures Finalized by Xavier Prado MD on 11/07/2024 11:35 AM
--- NOTE | 2024-11-04 07:06 | W.PM.OPSUD ---
Surgery/Procedure H&P Update DATE OF PROCEDURE: November 04, 2024 DATE H&P PERFORMED: 11/03/24 H&P UPDATE INFORMATION: I have reviewed H&P completed within last 30 days, I have examined patient prior to procedure and No changes to prior documentation PREOP DIAGNOSIS: NSTEMI PRIMARY INDICATION FOR PROCEDURE: NSTEMI PLANNED PROCEDURE: Left heart cath with possible percutaneous coronary intervention PATIENT REASSESSED PRIOR TO SEDATION, WITH NO CHANGE NOTED: Yes PHYSICAL EXAM: alert, oriented x 3, clear to auscultation bilaterally and regular rate & rhythm AIRWAY EVAL/ANESTHESIA PLAN: normal airway, ASA III, Local Anesthesia, Risks, benefits & alternatives of sedation and/or procedure discussed and Patient agrees to continue as planned ADDITIONAL INFORMATION: Moderate sedation
[2024-11-04 07:07] LABS: Partial Thromboplastin Time 87.7 SECONDS (23.9-36.7)
--- NOTE | 2024-11-04 07:36 | PM.PROC ---
Procedure Note: Date of procedure: 11/04/24 Pre-procedure diagnosis: NSTEMI Post-procedure diagnosis: other (Severe multivessel coronary artery disease) Procedure: Left heart cath:Left main artery has mild luminal irregularities. LAD has severe in-stent restenosis of mid LAD stent. Distal LAD has severe 90% stenosis. Ostial diagonal artery has significant 70% stenosis. Left circumflex artery is patent. RCA has multiple prior stents with severe in-stent restenosis of proximal stent. Mid to distal stent has been also significant 70% in-stent restenosis. Ostial PDA has significant 70-80% stenosis. Mid PDA also has 70% stenosis. A large sized PLV branch has 95 to 99% stenosis PLAN: Given severe multivessel coronary artery disease and multiple in-stent restenosis, we will proceed with CT surgery consult for possible CABG. Continue aspirin. Hold Plavix. Performing Provider: Xavier Prado Estimated blood loss (mL): 5 Complications: None Condition: stable Disposition: floor Coding Level of Care Code Acute Code for [facility]
--- NOTE | 2024-11-04 07:40 | PM.PN ---
Subjective Subjective: Patient is chest pain free. Was noted to have multivessel CAD on coronary angiogram. Vitals/I&O/Wt Last Vital Signs Temp 97.7 F 11/04/24 04:00 Pulse 60 11/04/24 06:00 Resp 15 11/04/24 04:00 BP 137/64 11/04/24 04:00 Pulse Ox 96 11/04/24 04:00 O2 Del Method Room Air 11/04/24 04:00 11/03/24 11/04/24 11/04/24 22:59 06:59 14:59 Intake Total 333.6 / 1135.733 300 / 1435.733 Balance 333.6 / 1135.733 300 / 1435.733 Weight last 48 hrs Weight 155 lb 12.8 oz Weight 153 lb 9.6 oz Weight 159 lb 3.2 oz Physical Exam Narrative: GENERAL: Patient is alert, awake and oriented x3. [] NECK: No jugular vein distension. [] HEENT: No cyanosis. No icterus. No pallor. [] HEART: Regular S1 and S2. No murmur, rub or gallop. [] LUNGS: Clear to auscultate bilaterally. [] CENTRAL NERVOUS SYSTEM: Grossly nonfocal. [] EXTREMITIES: Lower extremities with no edema bilaterally. Data 11/04/24 04:28 11/04/24 04:28 A&P Assessment and plan (1) NSTEMI (non-ST elevated myocardial infarction): (2) Tobacco abuse: (3) Coronary artery disease: (4) Hypertension: Plan Patient found to have multivessel multilevel severe CAD. Will refer to CT surgery possible CABG evaluation. Patient wanted this to be done as outpatient. He understands the risks. Spoke with [facility] surgery at [facility] (Dr Navarro) who will see patient in coming week. Patient told about ER warning symptoms and signs. Continue aspirin and statin therapy. Sublingual nitro as needed Thank you for involving us with care of this patient. Will continue to follow. Please call with questions. Attestations Medical Necessity Statement*: Care expected to cross 2 midnights. Coding Level of Care Code Acute Code for [facility] Diagnoses NSTEMI (non-ST elevated myocardial infarction) I21.4 Tobacco abuse Z72.0 Coronary artery disease I25.10 Hypertension I10
--- NOTE | 2024-11-04 07:45 | SUR.EXTENDED ---
Received the patient back from the sleep lab technologist via bed s/p Diagnostic [facility]. A & 0 x 3. campus monitor placed and vital signs obtained. TR band intact to the right wrist. No bleeding or hematoma noted. Palpable radial pulse. Family at bedside. No concerns voiced at this time. Will transfer back to room 108 after recovery.
--- NOTE | 2024-11-04 08:15 | SUR.EXTENDED ---
Patient transferred via bed to room 108 with spouse. A CD of the Cath Films was placed in the chart for transfer to another facility.
--- NOTE | 2024-11-04 08:31 | PC.NURSE ---
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
--- NOTE | 2024-11-04 12:30 | PM.DCS ---
Discharge Providers Date of Admission: 11/02/24 16:26 Date of Discharge: November 04, 2024 Attending Provider at Admission: Alexandre Curtis MD Attending Provider at Discharge: Alexandre Curtis MD Primary Care Provider: NICOLE Schroeder Diagnoses at Discharge Discharge Diagnosis (1) NSTEMI (non-ST elevated myocardial infarction): Status: Acute (2) Tobacco abuse: Status: Acute (3) Coronary artery disease: Status: Acute (4) Hypertension: Status: Acute Reason for Visit Reason for Visit: chest pain Hospital Course Hospital Course Tobias Stout is a 63 year old male with a past medical history of smoking, history of CAD, history of cardiac stenting, hypertension, who presents [facility] for chest pain. Patient reports that today he started experiencing severe substernal chest pain, radiating down the right arm, lasting a few minutes, symptoms associate with exertion, does report shortness of breath, no lower extremity edema, no cough, Patient was admitted to [facility] for NSTEMI, chest pain, received aspirin, statin, Plavix, beta-ivet, cardiac echocardiogram showing EF of 60% manage on heparin drip, cardiology was consulted. No recurrent chest pain during his hospitalization. Patient underwent coronary angiography 11/04/2024, found to have multivessel CAD, case was discussed with Dr. Haroon Navarro. Patient requested to go home, to follow-up with Dr. Haroon Navarro as outpatient rather than inpatient hospital to hospital transfer. Discussed with him the morbidity and mortality associate with acute coronary events, cardiac arrhythmias, patient was adamant about going home with outpatient follow-up, did not want to spend 4-5 nights in the hospital, he rather go home. Patient was discharged home, recommended if he were to have any chest pain or palpitations or shortness of breath to immediately call 911. Will be discharged on aspirin, statin, beta-ivet, nitro as needed with a close follow-up with primary care and Dr. Haroon Navarro as outpatient. Advised patient against working, return to the hospital if any significant symptomatology or chest pain or palpitations or shortness of breath Physical Exam Const: COMMON NORMALS: no acute distress and patient oriented x3 Resp: COMMON NORMALS: normal respiratory effort, No retractions, No use of accessory muscles and clear to auscultation bilaterally AUSCULTATION: clear to auscultation bilaterally Cardio: COMMON NORMALS: regular rate, regular rhythm, S1 normal heart sound present and S2 normal heart sound present RATE: regular rate RHYTHM: regular rhythm HEART SOUNDS: S1 normal heart sound present and S2 normal heart sound present GI: COMMON NORMALS: Normal to inspection, nondistended, normoactive bowel sounds present and non-tender Extremity: COMMON NORMALS: no pedal edema Neuro: COMMON NORMALS: patient oriented x3 Psych: COMMON NORMALS: mental status grossly normal Discharge Data Studies Completed and Pending Completed Studies During Hospitalization Category Date Time Status XR chest 1V portable [id number] Stat Exams 11/02/24 12:01 Completed CV. echo complete* [id number] Stat Ultrasound 11/02/24 16:23 Completed Pending at discharge Category Date Time Status [facility] request for service Routine Exams 11/04/24 07:00 Ordered Basic Metabolic Panel AM LABS Lab 11/05/24 04:00 Ordered Basic Metabolic Panel AM LABS Lab 11/06/24 04:00 Ordered Complete Blood Count w/Auto AM LABS Lab 11/05/24 04:00 Ordered Complete Blood Count w/Auto AM LABS Lab 11/06/24 04:00 Ordered Platelet Count Q2D Lab 11/06/24 04:00 Ordered Radiology Impressions Chest X-Ray 11/02/24 12:01 IMPRESSION: No acute findings. Laboratory Results WBC 7.27 10^3/uL (3.29-11.43) 11/04/24 04:28 RBC 5.38 10^6/uL (3.85-5.65) 11/04/24 04:28 Hgb 15.90 g/dL (11.27-16.99) 11/04/24 04:28 Hct 49.0 % (37-53) 11/04/24 04:28 MCV 91.1 fl (82-101) 11/04/24 04:28 MCH 29.6 pg (27-33) 11/04/24 04:28 MCHC 32.4 g/dL (30-55) 11/04/24 04:28 RDW 13.1 % (12.1-15.1) 11/04/24 04:28 Plt Count 155 10^3/cmm (157-399) L 11/04/24 04:28 MPV 10.2 fL (7.4-10.4) 11/04/24 04:28 Neut % (Auto) 45.1 % 11/04/24 04:28 Lymph % (Auto) 38.5 % 11/04/24 04:28 Ray % (Auto) 10.5 % 11/04/24 04:28 Eos % (Auto) 4.5 % 11/04/24 04:28 Baso % (Auto) 0.8 % 11/04/24 04:28 Neut # (Auto) 3.28 10^3/uL (1.8-7.7) 11/04/24 04:28 Lymph # (Auto) 2.8 10^3/uL (0.8-4.8) 11/04/24 04:28 Ray # (Auto) 0.8 10^3/uL (0.2-0.9) 11/04/24 04:28 Eos # (Auto) 0.3 10^3/uL (0.0-0.8) 11/04/24 04:28 Baso # (Auto) 0.1 10^3/uL (0.0-0.1) 11/04/24 04:28 Nucleated RBC % (auto) 0 % 11/04/24 04:28 Nucleated RBCs # 0.0 /100WBC 11/04/24 04:28 APTT 87.7 SECONDS (23.9-36.7) H 11/04/24 06:38 Sodium 137 mmol/L (136-145) 11/04/24 04:28 Potassium 4.2 mmol/L (3.5-5.1) 11/04/24 04:28 Chloride 104 mmol/L (98-107) 11/04/24 04:28 Carbon Dioxide 23 mmol/L (22-29) 11/04/24 04:28 Anion Gap 14.2 (5-19) 11/04/24 04:28 BUN 12 mg/dL (8-23) 11/04/24 04:28 Creatinine 1.0 mg/dL (0.7-1.2) 11/04/24 04:28 GFR Calculation 76.0 mL/min (90-130) L 11/04/24 04:28 Glucose 116 mg/dL (65-115) H 11/04/24 04:28 Estimat Average Glucose 114 11/02/24 12:24 Hemoglobin A1c 5.6 % (4.0-6.0) 11/02/24 12:24 Calculated Osmolality 285 mOsm/kg (285-295) 11/04/24 04:28 Calcium 8.9 mg/dL (8.5-10.5) 11/04/24 04:28 Total Bilirubin 0.4 mg/dL (0.15-1.2) 11/02/24 12:24 AST 13 U/L (0-40) 11/02/24 12:24 ALT 10 U/L (0-41) 11/02/24 12:24 Alkaline Phosphatase 67 U/L (40-130) 11/02/24 12:24 Troponin T Baseline 64 ng/L (0-15) H 11/02/24 12:24 Troponin T 120 Minute 93.80 ng/L (0-15) H 11/02/24 15:00 Delta Troponin T 29.80 ABS# (0-10) H* 11/02/24 15:00 Troponin T Hi Sens 6Hr 115.6 ng/L (0-15) H 11/02/24 18:30 Troponin T Hi Sens 6Hr Delta 51.6 ng/L (0-12) H* 11/02/24 18:30 Total Protein 7.7 g/dL (6.6-8.7) 11/02/24 12:24 Albumin 4.6 g/dL (3.5-5.2) 11/02/24 12:24 Globulin 3.1 g/dL (1.3-4.6) 11/02/24 12:24 Triglycerides 144 mg/dL (0-150) 11/02/24 12:24 Cholesterol 204 mg/dL (0-200) H 11/02/24 12:24 LDL Cholesterol, Calc 143 mg/dL (50-129) H 11/02/24 12:24 HDL Cholesterol 32 mg/dL (60-100) L 11/02/24 12:24 LDL/HDL Ratio 4.47 RATIO (0.00-3.22) H 11/02/24 12:24 Cholesterol/HDL Ratio 6.38 mg/dL (1.0-5.00) H 11/02/24 12:24 Lipase 36 U/L (13-60) 11/02/24 12:24 TSH 0.97 uIU/mL (0.27-4.20) 11/02/24 12:24 Vitals Last Vital Signs Temp 97.9 F 11/04/24 11:34 Pulse 56 L 11/04/24 11:34 Resp 20 H 11/04/24 11:34 BP 117/71 11/04/24 11:34 Pulse Ox 97 11/04/24 11:34 O2 Del Method Room Air 11/04/24 11:34 Discharge Plan Discharge Patient Disposition: Home Condition: Stable Prescriptions: New nitroglycerin 0.4 mg tablet, sublingual 0.4 mg sublingual Q5M PRN (Reason: chest pain) 30 Days Qty: 30 0RF Rx Instructions: do not exceed 3 doses per episode Continued garlic 500 mg capsule 500 mg PO DAILY coenzyme Q10 [CoQ-10] 100 mg capsule 100 mg PO DAILY cholecalciferol (vitamin D3) 25 mcg (1,000 unit) capsule 25 mcg PO DAILY cyanocobalamin (vitamin B-12) 2,500 mcg tablet 2,500 mcg PO DAILY omega [id number] oil [Fish Oil] 1,000 (120-180) mg Capsule 1 cap PO DAILY ascorbic acid (vitamin C) [Vitamin C] 500 mg Tablet 500 mg PO DAILY metoprolol tartrate 25 mg tablet 12.5 mg PO BID 30 Days Qty: 30 0RF Changed aspirin [Adult Aspirin Regimen] 81 mg tablet,delayed release (DR/EC) 81 mg PO DAILY 30 Days Qty: 30 0RF simvastatin 20 mg tablet 20 mg PO BID 30 Days Qty: 60 0RF Discharge Orders: Discharge Order (Routine); Ordered 11/04/24 Ordered By: Alexandre Curtis Referrals: Vicky Moise FNP [Primary Care Provider] - 1-3 days Carolann Pearson [Referring] - Haroon Navarro MD [Referring] - 1-3 days Discharge Diet: Cardiac Discharge Activity: Resume usual activity Patient Instructions: Opioid Safety Discharge Attestations Time Spent in Discharge Care*: greater than 30 min Quality Metrics Clinical Quality Measures [ No reported AMI, CVA or VTE this stay] Coding Level of Care Code 17968 Total time (in minutes) for Discharge: 45 Diagnoses NSTEMI (non-ST elevated myocardial infarction) I21.4 Tobacco abuse Z72.0 Coronary artery disease I25.10 Hypertension I10
--- NOTE | 2024-11-04 18:55 | PC.NURSE ---
Patient presented to [facility] with a right radial TR-band. Air is removed slowly 2ml's at a time, removed every 30-45 minutes. Nursing was going in to remove the TR-band and apply a dressing at 1515, when met nurse in the hallway and said the he was bleeding. Nursing staff assessed right wrist and it was bleeding. Two nurses went in the room and cleaned area and reapplied TR-band with 10ml's of air. Air was then removed slowly again after an hour. 2ml's at a time every 45-60 minutes. TR-band removed at 1830. A pressure dressing is applied. Patient is instructed about post cath instructions. Patient and state understanding.
--- NOTE | 2024-11-04 19:02 | PC.NURSE ---
Discharge is delayed due to TR-Band removal.
== END 2024-11-04 19:32 | disposition home or self-care (01) | DRG 282 ==
LOC: ER 12:56 → CSU 16:26
PROVIDERS: Emergency Medicine; Internal Medicine; Admitting Provider Family Medicine; Emergency Provider Family Medicine; PCP Nurse Practitioner Family; Visit Provider Family Medicine
PROC: 4A023N7 Measurement of Cardiac Sampling and Pressure, Left Heart, Percutaneous Approach (ICD-10-PCS; principal; 2024-11-04 07:00)
DX: T82.855A Stenosis of coronary artery stent, initial encounter (principal); I21.A9 Other myocardial infarction type; Y71.8 Miscellaneous cardiovascular devices associated with adverse incidents, not elsewhere classified; I25.10 Atherosclerotic heart disease of native coronary artery without angina pectoris; I10 Essential (primary) hypertension; F17.200 Nicotine dependence, unspecified, uncomplicated; E78.5 Hyperlipidemia, unspecified; Z79.82 Long term (current) use of aspirin
CPT/HCPCS: 36415; 71045; 80048; 80053; 80061; 83036; 83690; 84443; 84484; 85025; 85730; 93005; 93306; 93458; 94664; 96374; 96376; 99152; C1769; C1887; C1894; J1644; J2250; J2470; J3010; J3490; J7030; Q0163; Q9967

== ENCOUNTER → 2025-02-07 08:22 | Outpatient (BNVA) | payer BC, SELFPAY | PROVIDERS: PCP Nurse Practitioner Family; Visit Provider Nurse Practitioner Family | DX: I10 Essential (primary) hypertension (principal); E55.9 Vitamin D deficiency, unspecified | CPT/HCPCS: 80053; 80061; 82306 ==

== ENCOUNTER 2025-04-28 11:54 | Outpatient (CLI) | payer BC, MEDICAID, SELFPAY ==
--- NOTE | 2025-04-28 11:59 | USCV_ITS ---
Tobias Stout Age: 64 Gender: M : 1960 Exam Date: 04/28/2025 12:10 Ordering Phys: Lisa Kirkland Technologist: [place]am [place] [facility] [place] Indication: cad BP: 130 / 80 HR: 70 Rhythm: Sinus Technical Quality: Adequate MEASUREMENTS (Male / Female) Normal Values 2D ECHO LV Diastolic Diameter PLAX 4.7 cm 4.2 - 5.9 / 3.9 - 5.3 cm IVS Diastolic Thickness 1.1 cm 0.6 - 1.0 / 0.6 - 0.9 cm IVS Systolic Thickness 1.6 cm LVPW Diastolic Thickness 1.0 cm 0.6 - 1.0 / 0.6 - 0.9 cm LVPW Systolic Thickness 1.7 cm LVOT Diameter 2.0 cm LV Ejection Fraction 2D Teich 60.7 % LV Ejection Fraction MOD 4C 56.4 % LV Ejection Fraction MOD 2C 64.6 % LV Ejection Fraction 2C AL 65.9 % LA Diameter 3.4 cm LA Sys Volume AL 46.6 cm cubed LA Sys Volume Index AL 24.1 cm cubed/m squared Aorta at Sinotubular Diameter 3.0 cm IVC Diameter 1.6 cm M-MODE LA Ao Ratio MM 1.0 AV Cusp Separation MM 1.9 cm DOPPLER AV Peak Velocity 97.0 cm/s LVOT Peak Velocity 61.0 cm/s AV Area Cont Eq vti 2.3 cm squared AV Area Cont Eq pk 2.0 cm squared MV Area PHT 5.7 cm squared TV Peak Velocity 180.0 cm/s TR Peak Velocity 188.0 cm/s TR Peak Gradient 14.1 mmHg TV Peak E Velocity 88.0 cm/s PV Peak Velocity 98.0 cm/s FINDINGS Left Ventricle Normal LV size and ejection fraction of 56%.mild left ventricular hypertrophy. Abnormal septal motion consistent with conduction abnormality. Right Ventricle The right ventricle is normal in size and function. Right Atrium The right atrium is normal in size. Left Atrium The left atrium is normal in size. Mitral Valve No gross abnormalities noted Aortic Valve Thickened aortic valve. Tricuspid Valve Trace tricuspid valve regurgitation. Pulmonic Valve No gross abnormalities no Pericardium Normal pericardium without effusion. Aorta Normal ascending aorta dimension. IVC Normal inferior vena cava. CONCLUSIONS Normal LV size and ejection fraction of 56%.mild left ventricular hypertrophy. Abnormal septal motion consistent with conduction abnormality. Thickened aortic valve. Trace tricuspid valve regurgitation. There is no pericardial effusion. There are no intracardiac masses. Compared to the previous study from 11/02/2024, the abnormal septal motion appears to be new Dr Charly Russ MD [facility] (Electronically Signed) Final Date: 01 May 2025 17:07 S
== END 2025-04-28 11:55 | disposition home or self-care (01) ==
LOC: RAD 11:56
PROVIDERS: PCP Nurse Practitioner Family; Visit Provider Registered Nurse
DX: Z02.89 Encounter for other administrative examinations (principal); Z95.1 Presence of aortocoronary bypass graft; R93.1 Abnormal findings on diagnostic imaging of heart and coronary circulation; I35.8 Other nonrheumatic aortic valve disorders
CPT/HCPCS: 93306